=== PATIENT | male | born 1970 | race Caucasian/White ===

== ENCOUNTER → 2019-11-14 09:37 | Outpatient (CLI) | payer OTHER, SELFPAY ==
[2019-11-14 10:01] LABS: Basophils # 0.1 K/mm3 (0-0.2); Basophils % 0.7 % (0.1-2.0); Eosinophils # 0.1 K/mm3 (0.0-0.4); Eosinophils % 1.7 % (0.1-12.0); Hematocrit 47.9 % (42.0-52.0); Hemoglobin 15.4 g/dL (14.1-18.0); Lymphocytes # 2.1 K/mm3 (0.7-4.5); Lymphocytes % 28.7 % (10-50); Mean Corpuscular HGB Conc 32.2 g/dL (31.8-35.4); Mean Corpuscular Hemoglobin 29.2 pg (27.0-31.2); Mean Corpuscular Volume 90.6 fl (80-94); Mean Platelet Volume 6.9 fl (7.4-10.4); Monocytes # 0.4 K/mm3 (0.1-1.0); Monocytes % 5.9 % (1.7-9.3); Neutrophils # 4.5 K/mm3 (1.8-7.8); Neutrophils % 63.1 % (37.0-80.0); Platelet Count 307 K/mm3 (142-424); Red Blood Count 5.28 M/mm3 (4.60-6.20); White Blood Count 7.2 K/mm3 (4.8-10.8)
[2019-11-14 11:04] LABS: Anion Gap 16.9 mEq/L (5-15); Blood Urea Nitrogen 15 mg/dL (7-18); Calcium 9.5 mg/dL (8.5-10.1); Carbon Dioxide 23 mmol/L (21.0-32.0); Chloride 105 mmol/L (98-107); Creatinine,Serum 1.06 mg/dL (0.70-1.30); Estimated Glomerular Filt Rate 75 ml/min (>60); GFR (African American) 90 ML/MIN (>60); Glucose 131 mg/dL (74-106); Potassium 4.9 mmoL/L (3.5-5.1); Sodium 140 mmol/L (136-145)
[2019-11-14 11:07] LABS: Alanine Aminotransferase 40 U/L (12-78); Alkaline Phosphatase 82 U/L (46-116); Aspartate Amino Transferase 19 U/L (15-37); Bilirubin,Direct 0.1 mg/dL (0.0-0.2); Bilirubin,Indirect 0.2 mg/dL (0.0-0.9); Bilirubin,Total 0.3 mg/dL (0.2-1.0); Chol/HDL Ratio 5.3 (1-3.5); Cholesterol 249 mg/dL (140-200); HDL Cholesterol 47 mg/dL (27-67); LDL Cholesterol 164 mg/dL (0-130); Total Protein,Serum 7.4 gm/dL (6.4-8.2); Triglycerides 191 mg/dL (30-200); VLDL Cholesterol 38 mg/dL (0-40)
== END ==
PROVIDERS: Nurse Practitioner Family; Visit Provider Physician Assistant
DX: E78.5 Hyperlipidemia, unspecified (principal); I10 Essential (primary) hypertension
CPT/HCPCS: 36415; 80048; 80061; 80076; 85025; 87275; 87276

== ENCOUNTER → 2020-12-03 06:47 | Outpatient (CLI) | payer BC, SELFPAY ==
--- NOTE | 2020-12-03 06:49 | NM_ITS ---
APPROVED REPORT Exam: Nuclear Stress Test Indication: Chest pain, SOB, Fatigue, HTN, High cholesterol Patient Location: Outpatient Stress Tech: Leslieadam Ferris [facility] Tech:Ermelinda Weber, ARRT, RT (R)(N) Ht: 6 ft 3 in Wt: 270 lbs HR: 68 bpm BP: 145/97 mmHg BSA: 2.49 m2 BMI: 33.7 History: Chest pain, SOB, Fatigue, HTN, High cholesterol Procedure: Patient exercised on Kanu protocol 7:19 minutes and sec, resting heart rate 68 bpm, resting blood pressure 145/97 mmHg, with exercise maximum heart rate achived was 146 bpm which is 85 % of the maximum predicted heart rate and blood pressure was 192/98 mmHg. Test was stopped due to SOB. Patient denied any complaint of chest pain. Patient has exercise capacity, achieved 10.1 METs of workload on treadmill, the blood pressure response to exercise was . Cardiac Stress and Resting SPECT Images: Cardiac Stress and Resting SPECT images were obtained using technetium 99m Myoview 30.5 mCi stress and 10.02 mCi at rest. EF 63% Normal Conclusion: EF 63% Normal Electronically signed by : Hira Bernabe MD 12/10/2020 10:08:53
--- NOTE | 2020-12-03 06:49 | CA_ITS ---
APPROVED REPORT Exam: Exercise Treadmill Technologist: Leslie Ferris Ht: 6 ft 3 in Wt: 278 lbs BSA: 2.52 m2 HR: 68 bpm BP: 145/97 mmHg Indications: Chest pain, Shortness of Breath Medical History Medications: Amlodipine,,,,, Lisinopril,,,,, Aspirin,,,,, Carvedilol,,,,, RoSUVASTATIN,,,,, Multivitamin,,,,, Stress Test Details Test: Kanu HR Resting HR: 70 bpm Max Heart Rate (APMHR): 171 bpm Max HR Achieved: 146 bpm Target HR (85% APMHR): 145 bpm % of APMHR: 85 Recovery HR: 102 bpm BP Resting BP: 145.0/97.0 mmHg Max BP: 192.0/98.0 mmHg Recovery BP: 145.0/95.0 mmHg ECG Resting ECG: Sinus rhythm Clinical Exercise duration: 07:19 min Highest Stage Achieved: Exercise capacity: 10.1 METs Stress ECG Conclusion Kanu protocol complete, exercised 7:19, METs 10.1, Stopped due to shortness of breath. Symptoms: Shortness of breath during peak exercise, resolved in recovery. No chest pain. Arrhythmias/Ectopy: No ectopy ST-T Changes: Less than 1.[address] depression Conclusion: Images to follow. Test Summary RECOVERY 04:00 0.0 0.0 102 . 158/ 90 . . REST . . . . . . . Standing REST 19:02 0.0 0.0 70 . 145/ 97 . . Stage 1 01:00 10.0 1.7 93 . . . . Stage 1 02:00 10.0 1.7 106 . . . . Stage 1 03:00 10.0 1.7 112 . 130/ 88 . . Stage 2 01:00 12.0 2.5 120 . . . . Stage 2 02:00 12.0 2.5 130 . . . . Stage 2 03:00 12.0 2.5 136 . 164/ 96 . . Stage 3 . . . . . . . Cardiolite injected Stage 3 01:00 14.0 3.4 145 . . . . Stage 3 01:19 14.0 3.4 146 . . . Stop exercise at 07:19 RECOVERY 01:00 0.0 0.0 131 . 192/ 98 . . RECOVERY 02:00 0.0 0.0 110 . 192/ 98 . . RECOVERY 03:00 0.0 0.0 103 . 158/ 90 . . RECOVERY 04:00 0.0 0.0 102 . 158/ 90 . . RECOVERY 05:00 0.0 0.0 97 . 158/ 90 . . RECOVERY 06:00 0.0 0.0 100 . 145/ 95 . . RECOVERY 06:11 0.0 0.0 100 . 145/ 95 . . Electronically signed by : Carlos Whitehead, 12/06/2020 15:17:39
--- NOTE | 2020-12-03 09:13 | HMH.ITSHM ---
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 []ROSUVASTATIN MULTIVITAMIN LISINOPRIL CARVEDILOL ASA AMLODIPINE
== END ==
LOC: RAD 06:49
PROVIDERS: Visit Provider Internal Medicine
DX: R07.9 Chest pain, unspecified (principal); R06.00 Dyspnea, unspecified; I10 Essential (primary) hypertension; E78.5 Hyperlipidemia, unspecified
CPT/HCPCS: 78452; 93017; 93306; A9502

== ENCOUNTER → 2020-12-18 11:18 | Outpatient (CLI) | payer BC, SELFPAY ==
[2020-12-18 11:46] LABS: Basophils # 0.1 K/mm3 (0-0.2); Basophils % 1.1 % (0.1-2.0); Eosinophils # 0.2 K/mm3 (0.0-0.4); Eosinophils % 3.6 % (0.1-12.0); Hematocrit 46.5 % (42.0-52.0); Hemoglobin 15.5 g/dL (14.1-18.0); Lymphocytes # 2.2 K/mm3 (0.7-4.5); Lymphocytes % 34.7 % (10-50); Mean Corpuscular HGB Conc 33.3 g/dL (31.8-35.4); Mean Corpuscular Hemoglobin 30.1 pg (27.0-31.2); Mean Corpuscular Volume 90.5 fl (80-94); Mean Platelet Volume 7.2 fl (7.4-10.4); Monocytes # 0.5 K/mm3 (0.1-1.0); Neutrophils # 3.4 K/mm3 (1.8-7.8); Neutrophils % 53.5 % (37.0-80.0); Platelet Count 292 K/mm3 (142-424); Red Blood Count 5.14 M/mm3 (4.60-6.20); White Blood Count 6.4 K/mm3 (4.8-10.8)
[2020-12-18 12:08] LABS: Chloride 105 mmol/L (98-107); Potassium 4.7 mmoL/L (3.5-5.1); Sodium 140 mmol/L (136-145)
[2020-12-18 12:10] LABS: Alanine Aminotransferase 46 U/L (12-78); Anion Gap 14.7 mEq/L (5-15); Aspartate Amino Transferase 30 U/L (17-59); Bilirubin,Unconjugated 0.5 mg/dL (0.0-1.1); Blood Urea Nitrogen 22 mg/dl (9-20); Carbon Dioxide 25 mmol/L (22.0-30.0); Estimated Glomerular Filt Rate 79 ml/min (>60); GFR (African American) 96 ML/MIN (>60)
[2020-12-18 12:11] LABS: Albumin Level 5.1 g/dl (3.5-5.0); Alkaline Phosphatase 75 U/L (38-126); Bilirubin,Direct 0.1 mg/dl (0.0-0.4); Bilirubin,Indirect 0.5 mg/dL (0.0-0.9); Bilirubin,Total 0.6 mg/dl (0.2-1.3); Calcium 10.3 mg/dl (8.4-10.2); Chol/HDL Ratio 4.6 (1-3.5); Cholesterol 179 mg/dl (140-200); Glucose 131 mg/dl (74-100); HDL Cholesterol 39 mg/dl (40-60); Total Protein,Serum 8.6 g/dl (6.3-8.2); Triglycerides 231 mg/dl (30-150); VLDL Cholesterol 46 mg/dL (0-40)
[2020-12-18 12:22] LABS: Direct LDL Cholesterol 82.81 mg/dL (100-129)
== END ==
PROVIDERS: Visit Provider Physician Assistant
DX: I10 Essential (primary) hypertension; I11.9 Hypertensive heart disease without heart failure; R06.00 Dyspnea, unspecified; R07.9 Chest pain, unspecified; R07.89 Other chest pain; R94.31 Abnormal electrocardiogram [ECG] [EKG]; E78.2 Mixed hyperlipidemia
CPT/HCPCS: 36415; 80048; 80061; 80076; 85025

== ENCOUNTER → 2022-12-25 09:19 | Outpatient (CLI) | payer BC, SELFPAY ==
[2022-12-25 10:19] LABS: Alanine Aminotransferase 34 U/L (12-78); Albumin Level 4.3 g/dl (3.5-5.0); Alkaline Phosphatase 72 U/L (38-126); Aspartate Amino Transferase 27 U/L (17-59); Bilirubin,Direct 0.1 mg/dl (0.0-0.4); Bilirubin,Indirect 0.6 mg/dL (0.0-0.9); Bilirubin,Total 0.7 mg/dl (0.2-1.3); Bilirubin,Unconjugated 0.6 mg/dL (0.0-1.1); Chol/HDL Ratio 3.9 (1-3.5); Cholesterol 162 mg/dl (140-200); HDL Cholesterol 42 mg/dl (40-60); Total Protein,Serum 7.2 g/dl (6.3-8.2); Triglycerides 153 mg/dl (30-150); VLDL Cholesterol 31 mg/dL (0-40)
[2022-12-25 10:37] LABS: Direct LDL Cholesterol 95.33 mg/dL (100-129)
== END ==
PROVIDERS: Visit Provider Nurse Practitioner
DX: E78.2 Mixed hyperlipidemia (principal); I11.9 Hypertensive heart disease without heart failure
CPT/HCPCS: 36415; 80061; 80076

== ENCOUNTER 2025-01-26 09:09 | Outpatient (CLI) | payer OTHER, SELFPAY ==
[2025-01-26 09:46] LABS: Basophils # 0.1 K/mm3 (0-0.2); Basophils % 1.1 % (0.1-2.0); Eosinophils # 0.3 Kmm3 (0.0-0.4); Eosinophils % 4.1 % (0.1-12.0); Hematocrit 42.5 % (42.0-52.0); Hemoglobin 14.7 g/dL (14.1-18.0); Lymphocytes % 33.1 % (10-50); Mean Corpuscular HGB Conc 34.6 g/dL (31.8-35.4); Mean Corpuscular Volume 89.7 fl (80-94); Mean Platelet Volume 8.6 fl (7.4-10.4); Monocytes # 0.7 K/mm3 (0.1-1.0); Monocytes % 11.9 % (1.7-9.3); Neutrophils % 49.5 % (37.0-80.0); Nucleated Red Blood Cells # 0 10^3/uL; Nucleated Red Blood Cells % 0 %; Platelet Count 240 K/mm3 (142-424); Red Blood Count 4.74 M/mm3 (4.60-6.20); Red Cell Distribution Width 12.9 % (11.5-17.5); Red Cell Distribution Width-SD 42.3 fL; White Blood Count 6.1 K/mm3 (4.8-10.8)
[2025-01-26 10:10] LABS: Alanine Aminotransferase 45 U/L (12-78); Albumin Level 4.1 g/dl (3.5-5.0); Alkaline Phosphatase 61 U/L (38-126); Anion Gap 14.6 mEq/L (5-15); Aspartate Amino Transferase 30 U/L (17-59); Bilirubin,Direct 0.2 mg/dl (0.0-0.4); Bilirubin,Indirect 0.4 mg/dL (0.0-0.9); Bilirubin,Total 0.6 mg/dl (0.2-1.3); Bilirubin,Unconjugated 0.4 mg/dL (0.0-1.1); Blood Urea Nitrogen 12 mg/dl (9-20); Calcium 9.3 mg/dl (8.4-10.2); Carbon Dioxide 23 mmol/L (22.0-30.0); Chloride 105 mmol/L (98-107); Chol/HDL Ratio 3.6 (1-3.5); Cholesterol 147 mg/dl (140-200); Estimated Glomerular Filt Rate 88 ml/min (>60); GFR (African American) 106 ML/MIN (>60); Glucose 121 mg/dl (74-100); HDL Cholesterol 41 mg/dl (40-60); Potassium 4.6 mmoL/L (3.5-5.1); Sodium 138 mmol/L (136-145); Total Protein,Serum 6.8 g/dl (6.3-8.2); Triglycerides 115 mg/dl (30-150); VLDL Cholesterol 23 mg/dL (0-40)
[2025-01-26 10:21] LABS: Direct LDL Cholesterol 69.23 mg/dL (100-129)
[2025-01-26 10:27] LABS: Free T4 (Free Thyroxine) 0.87 ng/dl (0.78-2.19)
[2025-01-26 10:40] LABS: Thyroid Stimulating Hormone 0.51 uIU/mL (0.465-4.68)
== END 2025-01-26 23:59 | disposition home or self-care (01) ==
LOC: LAB 09:10
PROVIDERS: Visit Provider Physician Assistant
DX: E78.2 Mixed hyperlipidemia (principal); I10 Essential (primary) hypertension
CPT/HCPCS: 36415; 80048; 80061; 80076; 83735; 84439; 84443; 85025